=== PATIENT | male | born 1945 | race Caucasian/White ===

== ENCOUNTER 2017-05-13 11:34 | Day surgery (SDC) | payer MEDICARE ==
[~2017-05-13] VITALS: Ht 193 cm; Wt 103.0 kg
[~2017-05-13 11:34] MED LIST: ALLO300T PO; CHOL200040 PO; HYDR-3138 PO; LISI-167 PO; MULT-658 PO; NAPR220C2 PO; NAPR220T29 PO; SIMV40TA3 PO; TRAM50TA2 PO; ZOLP5TAB6 PO
[2017-05-13] MEDS ORDERED: LACTATED RINGERS 1,000 ML IV SCH (12:06)
[2017-05-13 12:10] VITALS: BP 124/75
[2017-05-13] MEDS ORDERED: LIDOCAINE 1%, 2ML ONE (12:12)
[2017-05-13] MEDS ORDERED: MIDAZOLAM 1 MG/ML, 2ML ONE (13:33)
[2017-05-13] MEDS ORDERED: FENTANYL PF 100 MCG/2ML ONE ×3 (13:34→15:45)
[2017-05-13] MEDS ORDERED: DEXAMETHASONE 4 MG/ML, 1ML ONE (13:46)
[2017-05-13] MEDS ORDERED: PROPOFOL 10 MG/ML, 20ML ONE (13:46)
[2017-05-13] MEDS ORDERED: ONDANSETRON 2MG/ML, 2ML ONE (13:46)
[2017-05-13] MEDS ORDERED: PROMETHAZINE 25 MG/ML, 1ML IV PRN (14:00)
[2017-05-13] MEDS ORDERED: ACETAMINOPHEN 325 MG TABLET PO PRN (14:00)
[2017-05-13] MEDS ORDERED: HYDROmorphone 1 MG/ML, 1ML IV PRN (14:00)
[2017-05-13] MEDS ORDERED: hydrALAzine 20 MG/ML, 1ML IV PRN (14:00)
[2017-05-13] MEDS ORDERED: LABETALOL 5MG/ML, 20ML IV PRN (14:00)
[2017-05-13] MEDS ORDERED: OXYcodone 5 MG/5 ML ORAL.SOL UDC PO PRN (14:00)
[2017-05-13] MEDS ORDERED: HYDROcodone/APAP 7.5-325MG/15ML UDC PO PRN (14:00)
[2017-05-13] MEDS ORDERED: FENTANYL PF 100 MCG/2ML IV PRN (14:00)
[2017-05-13] MEDS ORDERED: EPHEDRINE 50 MG/ML, 1ML IVPush PRN (14:00)
[2017-05-13] MEDS ORDERED: ONDANSETRON 2MG/ML, 2ML IVPush PRN (14:00)
[2017-05-13] MEDS ORDERED: ACETAMINOPHEN 650 MG/20.3 ML UDC ONE (15:45)
[2017-05-13] MEDS ORDERED: OXYcodone 5 MG/5 ML ORAL.SOL UDC ONE (15:45)
== END 2017-05-13 17:15 ==
LOC: OUT 11:34
PROVIDERS: ATTEND Urology
DX: N20.0 Calculus of kidney (principal); I10 Essential (primary) hypertension; M10.9 Gout, unspecified; Z87.440 Personal history of urinary (tract) infections
CPT/HCPCS: 50590; J1100; J2250; J2405; J2704; J7120; J3010

== ENCOUNTER → 2020-04-12 | Outpatient (CLI) | payer MEDICARE ==
[~2020-04-12] MED LIST changes: -HYDR-3138 PO; +HYDR-3237 PO; +NAPR-816 PO; -NAPR220T29 PO; +SIMV40TA20 PO; -SIMV40TA3 PO
== END | disposition home or self-care (01) ==
LOC: CVU 07:35
PROVIDERS: ATTEND Internal Medicine Cardiovascular Disease
DX: I10 Essential (primary) hypertension (principal); R07.89 Other chest pain
CPT/HCPCS: 93306